=== PATIENT | male | born 1975 | race Caucasian/White ===

== ENCOUNTER 2019-06-27 11:25 | Outpatient (CLI) | payer OTHER, SELFPAY ==
[2019-06-27 12:03] LABS: Rheumatoid Factor < 8.6 IU/ML (<12)
[2019-07-01 11:39] LABS: RNP Antibodies <1.0; SS-A <1.0; SS-B <1.0
[2019-07-01 12:54] LABS: Scleroderma 70 Antibody <1.0
== END 2019-06-27 11:26 | disposition home or self-care (01) ==
LOC: ANHLAB 11:28
PROVIDERS: PCP Internal Medicine; Visit Provider Nurse Practitioner Family
DX: M35.8 Other specified systemic involvement of connective tissue (principal)
CPT/HCPCS: 36415; 86038; 86225; 86235; 86430

== ENCOUNTER 2019-07-15 07:54 | Outpatient (CLI) | payer OTHER, SELFPAY ==
--- NOTE | ~2019-07-15 | CT_ITS ---
EXAMINATION: CT chest high resolution [facility] EXAM DATE: 07/15/2019 08:21 INDICATION: Chest pain, shortness of breath. Cough. TECHNIQUE: Spiral CT of the chest without contrast. HRCT. Axial, coronal and sagittal images were rev iewed. Coronal maximum intensity pixel images of chest reviewed. The dose-length product (DLP) for this examination was 410.49 mGy-cm. The exposure was tailored according to patient size (auto mA exp osure control), and iterative reconstruction (ASIR) was used as additional dose reduction technique. Comparison is made to prior examination from 04/23/2018. FINDINGS: No intralobular septal thickening suspected on the HRCT. There is 4 mm left lower lobe ple ural-based nodule, unchanged, consistent with granuloma. Faint numerous respiratory bronchiolitis int erstitial lung disease upper lobe groundglass opacities still likely present although less well visua lized from respiratory motion, probably (RB-ILD). There are no pleural or pericardial effusions. Tracheobronchial tree is patent. There is no media stinal, hilar or axillary lymphadenopathy. There is no pneumothorax. Heart normal in size. No e vidence of coronary arterial calcification. Upper abdomen is unremarkable. No osteoblastic or oste olytic lesions identified. There is no significant interval change. IMPRESSION: 1. 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 Reviewed, dictated and finalized at location A.
== END 2019-07-15 07:55 | disposition home or self-care (01) ==
LOC: ANHIMG 08:01
PROVIDERS: PCP Internal Medicine; Visit Provider Nurse Practitioner Family
DX: J84.9 Interstitial pulmonary disease, unspecified (principal)
CPT/HCPCS: 71250

== ENCOUNTER 2019-12-18 14:17 | Outpatient (CLI) | payer OTHER, SELFPAY ==
--- NOTE | ~2019-12-18 | XR_ITS ---
EXAMINATION: XR chest 2V EXAM DATE: 12/18/2019 14:34 INDICATION: Shortness of breath, cough. Dizziness. TECHNIQUE: Frontal and lateral projections of the chest obtained and reviewed. Comparison is made to prior examination from 04/03/2018. FINDINGS: The lungs are clear. There are no pleural effusions. The cardiomediastinal silhouette is within normal limits. There is no pneumothorax suspected. The bones and soft tissues are unremarkab le. IMPRESSION: Normal chest x-ray exam. Reviewed, dictated and finalized at location B. ATANT SWIMMER IMPRESSION: Normal chest x-ray exam.
== END 2019-12-18 14:18 | disposition home or self-care (01) ==
PROVIDERS: PCP Internal Medicine; Visit Provider Nurse Practitioner
DX: R06.02 Shortness of breath (principal)
CPT/HCPCS: 71046

== ENCOUNTER 2020-01-03 07:37 | Outpatient (CLI) | payer OTHER, SELFPAY ==
--- NOTE | 2020-01-03 08:08 | ECHO_ITS ---
Patient Info Name: Mitesh Watson Age: 44 years : 1975 Gender: Male Ht: 70 in Wt: 260 lbs BSA: 2.46 m2 HR: 82 bpm BP: 146 / 86 mmHg Technical Quality: Good Exam Date: 01/03/2020 8:21 AM Exam Location: [facility] Pulmonary Patient Status: Outpatient Admit Date: 01/03/2020 Staff Ordering Physician: Silvia Villalobos NP Gastroenterology Teacher: Jed Yost RDCS, RT Attending Provider: Silvia Villalobos NP Referring Physician: Mary Arellano MD; Exam Type: CA echo doppler color flow Study Info Indications I11.0 - Hypertensive heart disease with heart failure Complete two-dimensional, color flow and Doppler transthoracic echocardiogram is performed. Strain analysis performed. Summary 1. Complete two-dimensional, color flow and Doppler transthoracic echocardiogram is performed. 2. Left ventricular chamber dimension is normal. 3. Left ventricular systolic function is normal, estimated at 60-65%. 4. The left ventricular diastolic function is normal. 5. E/e' 5 is not elevated. Left Ventricle E/e' 5 is not elevated. Left ventricular chamber dimension is normal. Left ventricular systolic function is normal, estimated at 60-65%. The left ventricular diastolic function is normal. Right Ventricle Right ventricular systolic function is normal with normal TAPSE 1.8 cm. Right ventricular chamber dimension is normal. Left Atria Left atrial chamber dimension is normal. Right Atria Right atrial chamber dimension is normal. Aortic Valve The aortic valve is trileaflet. There is no aortic valve stenosis. There is no aortic valve regurgitation. Pulmonic Valve There is no pulmonic regurgitation. Mitral Valve There is no mitral valve stenosis. There is no mitral valve regurgitation. Tricuspid Valve There is no tricuspid valve regurgitation. Pericardium/Pleural There is no pericardial effusion. Inferior Vena Cava Normal inferior vena cava with >50% collapse upon inspiration consistent with normal right atrial pressure, 5 mmHg. Aorta The aortic root size at the sinus of Valsalva is normal. Left Ventricular Outflow Tract Name Value Normal LVOT 2D LVOT Diameter 2.0 cm LVOT Doppler LVOT Peak Gradient 6 mmHg LVOT Mean Gradient 4 mmHg LVOT VTI 22 cm LVOT VTI/AV VTI Ratio 0.8 LVOT Stroke Volume 68 ml LVOT CO 6.7 l/min LVOT CI 2.7 l/min/m2 Mitral Valve Name Value Normal MV Doppler MV Decel [place] 422 cm/s2 MV PHT 56 ms MV Area (PHT) 3.9 cm2 4.0-5.0 MV Diastolic Function
[2020-01-08 18:13] LABS: Immunoglobulin E 137 kU/L (<=114)
== END 2020-01-03 07:38 | disposition home or self-care (01) ==
PROVIDERS: PCP Internal Medicine; Referring Provider Internal Medicine Critical Care Medicine; Visit Provider Nurse Practitioner
DX: R05 Cough (principal); R79.89 Other specified abnormal findings of blood chemistry
CPT/HCPCS: 36415; 82785; 93306

== ENCOUNTER 2020-01-16 17:03 | Emergency (ER) | payer OTHER, SELFPAY ==
--- NOTE | ~2020-01-16 | XR_ITS ---
EXAMINATION: XR chest 1V portable DATE: 01/16/2020 17:36 INDICATION: Cough, nausea and vomiting. Bronchitis. TECHNIQUE: frontal view of the chest was obtained. COMPARISON: Chest radiograph dated 12/18/2019 FINDINGS: The lungs remain clear with no focal airspace opacities, pulmonary edema, pleural effusion or pneumot horax. The cardiomediastinal silhouette is normal. Visualized bones and soft tissues are unremarkable . IMPRESSION: 1. No acute cardiopulmonary disease. Reviewed, dictated and finalized at location A. TIAN BLIND WASHER
[2020-01-16 17:09] VITALS: BP 131/83; PULSE 94; RESP 18; TEMP 36.9; O2SAT 100
--- NOTE | 2020-01-16 17:23 | ECG_ITS ---
Measurements Intervals [place] Rate: 91 P: 12 IA: 156 QRS: 10 QRSD: 96 T: 32 QT: 328 QTc: 404 Interpretive Statements SINUS RHYTHM BASELINE ARTIFACT- I, II, AVR, AVL, V2 NORMAL ECG Electronically Signed On 01-16-2020 18:25:41 CERTIFIED [employer]E [employer]PARER by Blake Tanner D.O.
[2020-01-16] MEDS: SODIUM CHLORIDE 0.9% IV 1,000 ML 999 ML IV CONT ×2 (17:51→19:45)
--- NOTE | 2020-01-16 17:52 | ED.GENADULT ---
HPI - General Adult General Chief complaint: Unspecified Stated complaint: fever, sob, coughed up blood,diarrhea Time Seen by Provider: 01/16/20 17:23 Source: patient Mode of arrival: ambulatory Limitations: no limitations History of Present Illness HPI narrative: Patient is a 44-year-old male complaining of cough, productive, blood tinge sputum accompanied by body aches, nausea, vomiting, diarrhea, chills x2 days. Denies any chest pain, shortness of breath, abdominal pain, fever, urinary symptoms or rash.. Related Data Home Medications Medication Instructions Recorded Confirmed albuterol sulfate 0.63 mg/3 mL 0.63 mg INHALATION Q4-6H PRN 05/28/19 01/16/20 solution for nebulization albuterol sulfate 90 mcg/actuation 2 puff INHALATION Q4-6H PRN gm 05/28/19 01/16/20 aerosol inhaler mometasone-formoterol HFA 200 2 puff INHALATION BID 05/28/19 01/16/20 mcg-5 mcg/actuation aerosol inhaler trazodone 50 mg tablet 50 mg PO .QHS tablet 12/13/19 01/16/20 Allergies Allergy/AdvReac Type Severity Reaction Status Date / Time No Known Allergies Allergy Verified 01/16/20 17:04 Review of Systems Review of Systems: All systems reviewed & are unremarkable except as noted in HPI and below Constitutional: Constitutional: Denies excessive sweating, Denies headache(s), Denies lethargy, Denies malaise, Denies weakness and Denies weight loss Eyes: Eyes: Denies blurry vision, Denies change in vision and Denies loss of vision ENT: Denies dizziness, Denies ear discharge, Denies headache(s), Denies lip swelling, Denies epistaxis, Denies nasal congestion, Denies neck pain, Denies throat swelling and Denies tongue swelling Cardiovascular: Cardiovascular: Denies chest pain, Denies chest pain at rest, Denies chest pain with activity, Denies diaphoresis, Denies rapid heart rate, Denies edema, Denies irregular heart rhythm, Denies lightheadedness, Denies palpitations, Denies dyspnea and Denies dyspnea on exertion Respiratory: Respiratory: Denies chest congestion, Denies dyspnea and Denies dyspnea on exertion Gastrointestinal: Gastrointestinal: Denies abdominal pain, Denies melena, Denies hematochezia, Denies diarrhea, Denies nausea, Denies vomiting and Denies hematemesis Musculoskeletal: Musculoskeletal: Denies abnormal gait, Denies deformity, Denies joint swelling, Denies limited range of motion, Denies neck pain and Denies numbness Neurologic: Denies Abnormal speech present, Denies abnormal gait, Denies confusion, Denies dizziness, Denies headache(s), Denies focal weakness, Denies loss of vision, Denies numbness, Denies Other visual disturbances, Denies Sensory deficit (Neuro) and Denies weakness Psychiatric: Psychiatric: Denies confusion, Denies depression, Denies auditory hallucinations, Denies homicidal ideation and Denies suicidal ideation Endocrine: Endocrine: Denies cold intolerance, Denies excessive sweating, Denies fatigue, Denies heat intolerance and Denies palpitations Hematologic/Lymphatic: Hematologic/Lymphatic: Denies easy bleeding and Denies easy bruising Allergic/Immunologic: Allergic/Immunologic: Denies lip swelling, Denies throat swelling and Denies tongue swelling PMFSH Past Medical History Medical History Anxiety Boil removed Headache, migraine HTN (hypertension) Insomnia Productive cough Respiratory bronchiolitis interstitial lung disease Shortness of Breath Family History Family History Mother Family history of schizophrenia Stomach cancer Father Hypertension Family history of cardiovascular disease Heart disease Social History Social History Smoking packs per day: 1.5 Smoking cigarettes per day: 30.0 Years smoked: 30 Smoking pack-years: 45.00 Smoking status: Heavy tobacco smoker Alcohol intake: current Gender identity (if godfrey
[2020-01-16 17:56] LABS: Basophils Absolute Auto 0.1 K/mm3 (0.0-0.1); Basophils Percent Auto 0.3 % (0.2-1.2); Eosinophils Absolute Auto 0.1 K/mm3 (0-0.3); Eosinophils Percent Auto 0.8 % (0-4.4); Hematocrit 44.7 % (42.0-52.0); Hemoglobin 14.5 g/dL (14.0-18.0); Immature Granulocyte Absolute 0.06 K/mm3 (0.00-0.031); Immature Granulocyte Percent A 0.4 % (0-0.5); Lymphocytes Absolute Auto 2.15 K/mm3 (0.9-3.2); Lymphocytes Percent Auto 14.7 % (18.3-44.2); Mean Corpuscular HGB Conc 32.4 g/dl (32-36); Mean Corpuscular Hemoglobin 30.2 pg (26-34); Mean Corpuscular Volume 93.1 fl (80-100); Mean Platelet Volume 9.5 fl (7.4-10.4); Monocytes Absolute Auto 2.1 K/mm3 (0.1-0.6); Monocytes Percent Auto 14.7 % (2.6-8.5); Neutrophils Absolute Auto 10.1 K/mm3 (1.3-6.7); Neutrophils Percent Auto 69.1 % (45.5-73.1); Platelet Count Result 231 k/mm3 (150-375); Red Cell Distribution Width 14.3 % (11.5-14.5); White Blood Count 14.6 K/mm3 (4.5-10.0)
[2020-01-16 18:04] LABS: Prothrombin Time 13.4 Seconds (11.1-14.7)
[2020-01-16 18:06] LABS: Alanine Aminotransferase 27 U/L (4-50); Albumin Level 4.1 g/dL (3.5-5.1); Alkaline Phosphatase 86 U/L (38-126); Anion Gap 7 mmol/L (8-16); Aspartate Amino Transferase 24 U/L (17-59); Bilirubin,Total 0.4 mg/dL (0.2-1.3); Blood Urea Nitrogen 8 mg/dL (9-20); Carbon Dioxide 31 mmol/L (22-30); Chloride 100 mmol/L (98-107); Estimated CRCL calculation 135 ml/min; Estimated Glomerular Filt Rate > 60; Glucose 106 mg/dL (75-110); Partial Thromboplastin Time 47.3 SECONDS (22.3-36.8); Potassium 3.9 mmol/L (3.4-5.0); Sodium 138 mmol/L (137-145)
[2020-01-16 18:07] LABS: Lactic Acid Reflex 0.7 mmol/L (0.7-2.1)
[2020-01-16 18:17] LABS: Troponin I < 0.012 ng/mL (0.000-0.034)
[2020-01-16 19:51] VITALS: BP 146/95; PULSE 99; RESP 118; O2SAT 99
== END 2020-01-16 20:30 | disposition home or self-care (01) ==
PROVIDERS: Emergency Provider Emergency Medicine; PCP Internal Medicine
DX: J20.9 Acute bronchitis, unspecified (principal); J02.9 Acute pharyngitis, unspecified; F41.9 Anxiety disorder, unspecified; I10 Essential (primary) hypertension; J84.115 Respiratory bronchiolitis interstitial lung disease; F17.210 Nicotine dependence, cigarettes, uncomplicated
CPT/HCPCS: 36415; 71045; 80053; 83605; 84484; 85025; 85380; 85610; 85730; 87081; 87880; 93005; 96361; 96365; 96375; 99284; J0696; J1100; J7030